=== PATIENT | female | born 1965 | race Caucasian/White ===

== ENCOUNTER 2019-10-05 16:17 | Outpatient (CLI) | payer BC, SELFPAY ==
--- NOTE | 2019-10-05 | XR_ITS ---
WS: [id number] CERVICAL SPINE TECHNIQUE: 3 views of the cervical spine CLINICAL INFORMATION: NECK PAIN COMPARISON: 4 18,019 FINDINGS: Straightening of the normal cervical lordosis. Mild spondylitic changes. Mild disc space narrowing wo rse at C5-C6 and C6-C7. Slight retrolisthesis C5 on C6 and C6 on C7. Normal prevertebral soft tissues . Normal C1-2 articulation. XR/XR cervical spine 3V* [id number] IMPRESSION: 1. Straightening of the normal cervical lordosis with mild spondylitic changes . 2. Slight retrolisthesis C5 on C6 and C6-C7 with mild disc space narrowing.
--- NOTE | 2019-10-05 | XR_ITS ---
WS: [id number] LUMBAR SPINE TECHNIQUE: 3 views of the lumbar spine CLINICAL INFORMATION: CHRONIC BACK PAIN COMPARISON: None. FINDINGS: Five [id number] lumbar vertebral bodies. Mild lumbar curve convex right. Disc space heights are well preserved. No compression fractures. Slight retrolisthesis L1 on L2 and L2-L3. Visualized sacroiliac joints are normal. Normal visualized soft tissues. Partially visualized bowel g as pattern is normal. XR/XR lumbar spine 2-3V* [id number] IMPRESSION: 1. Mild lumbar curve convex right. 2. Mild disc space narrowing L4-L5 and L5-S1. 3. No acute lumbar spine findings.
== END 2019-10-05 16:18 | disposition home or self-care (01) ==
LOC: RADWPI 16:18
PROVIDERS: Family Provider Family Medicine; PCP Family Medicine; Visit Provider Nurse Practitioner Family
DX: M47.892 Other spondylosis, cervical region (principal); M54.2 Cervicalgia; G89.29 Other chronic pain

== ENCOUNTER 2019-11-09 11:32 | Outpatient (CLI) | payer BC, SELFPAY ==
--- NOTE | 2019-11-09 11:34 | MR_ITS ---
WS: [id number] MRI LUMBAR SPINE NONCONTRAST TECHNIQUE: Sagittal T1, T2 and STIR imaging. Axial T1 and T2 imaging. CLINICAL INFORMATION: CHRONIC BACK PAIN COMPARISON: None. FINDINGS: Mild lumbar curve. No acute compression. Degenerative disc space narrowing worse L5-S1. L1-L2: Normal. L2-L3: Normal. L3-L4: No significant disc bulging. Mild facet arthropathy. Spinal canal and foramen are patent. L4-L5: Mild annular bulging with slight effacement of the ventral thecal sac. Narrowing of the subart icular recess bilaterally. Moderate facet arthropathy with small facet effusions. Foramen are patent. L5-S1: Disc osteophyte complex with endplate ridging. Central disc osteophyte protrusion with slight contact of the traversing right greater than left S1 nerve roots. Recommend correlation for right S1 nerve root symptoms. Moderate right and mild left foraminal narrowing. Moderate facet arthropathy wit h small facet effusions. Visualized pelvic bony structures: Normal. Paravertebral soft tissues: Normal. MR/MR lumbar spine wo con* [id number] IMPRESSION: 1. Mild lumbar curve. No acute compression. No high-grade central canal stenos is. 2. Disc osteophyte complex L5-S1 with moderate right and mild left bony forami nal narrowing. 3. Small central disc osteophyte protrusion L5-S1 slightly contacts the right greater than left S1 nerve roots. 4. Moderate facet arthropathy L4-L5 and L5-S1 with small facet effusions likel y degenerative. 5. Mild annular bulging L4-5 with slight effacement of the ventral thecal sac and slight narrowing of the subarticular recess bilaterally.
== END 2019-11-09 11:33 | disposition home or self-care (01) ==
LOC: RADSHAW 11:32
PROVIDERS: Family Provider Family Medicine; PCP Nurse Practitioner Family; Visit Provider Nurse Practitioner Family
DX: G89.29 Other chronic pain (principal); M25.78 Osteophyte, vertebrae; M51.27 Other intervertebral disc displacement, lumbosacral region; M47.816 Spondylosis without myelopathy or radiculopathy, lumbar region
CPT/HCPCS: 72148

== ENCOUNTER 2019-12-13 08:30 | Outpatient (CLI) | payer BC, SELFPAY ==
--- NOTE | 2019-12-13 08:46 | XR_ITS ---
WS: [id number] LATERAL LUMBAR SPINE: 3 view. Lateral radiographs are performed in upright neutral, flexion and extension to the patient's toleranc e. HISTORY: low back pain COMPARISON: 10/05/2019 L4 anterolisthesis by 4.3 mm on neutral imaging. With flexion and extension there is no significant c hange in alignment. Disc spaces are asymmetric due to slight rotation and scoliosis. XR/XR lumbar spine f/e only [id number] IMPRESSION: 1. L4 anterolisthesis by 4.3 mm. Please note this instability was not apparent on the supine radiographs and MRI recently performed. Upright imaging exacerba ravi the anterolisthesis. 2. No lumbar spine instability.
== END 2019-12-13 08:31 | disposition home or self-care (01) ==
LOC: RADWPI 08:36
PROVIDERS: Family Provider Family Medicine; PCP Nurse Practitioner Family; Visit Provider Licensed Practical Nurse
DX: M51.17 Intervertebral disc disorders with radiculopathy, lumbosacral region (principal)
CPT/HCPCS: 72120

== ENCOUNTER → 2019-12-14 08:25 | Outpatient (BNVA) | payer BC, SELFPAY | PROVIDERS: Family Provider Family Medicine; PCP Nurse Practitioner Family; Referring Provider Licensed Practical Nurse; Visit Provider Anesthesiology Pain Medicine | DX: G89.29 Other chronic pain (principal); M51.17 Intervertebral disc disorders with radiculopathy, lumbosacral region; F17.210 Nicotine dependence, cigarettes, uncomplicated; Z79.891 Long term (current) use of opiate analgesic | CPT/HCPCS: 99204 ==

== ENCOUNTER → 2019-12-22 12:31 | Outpatient (BNVA) | payer BC, SELFPAY | PROVIDERS: Family Provider Family Medicine; PCP Nurse Practitioner Family; Visit Provider Anesthesiology Pain Medicine | DX: G89.29 Other chronic pain (principal); M51.17 Intervertebral disc disorders with radiculopathy, lumbosacral region; M54.9 Dorsalgia, unspecified | CPT/HCPCS: 64483; 64484 ==

== ENCOUNTER 2020-01-10 10:14 | Outpatient (CLI) | payer BC, SELFPAY ==
--- NOTE | 2020-01-10 | MR_ITS ---
WS: [id number] MRI CERVICAL SPINE HISTORY: CERVICAL DISK W/MYELOPATHY COMPARISON: None available. Mild straightening of the normal cervical lordosis. Moderate degenerative disc disease at C5-6 and C6-7 with osteophytes and disc bulging. Signal within the cord is normal. Craniocervical junction, C1 and C2 relationship, odontoid process and soft tissues are normal. C2-C3: Normal. C3-C4: Normal. C4-C5: Normal. C5-C6: Osteophytic ridging and annular disc bulging. There is mild central and bilateral foraminal st enosis. Slightly more bone contact on the exiting RIGHT nerve roots. C6-C7: Diffuse osteophytic ridging and annular disc bulging. Flattening of the ventral thecal sac. Co mplete effacement of CSF. Moderate central and RIGHT foraminal stenosis with mild LEFT foraminal sten osis. C7-T1: Normal. Paraspinal soft tissue are normal. MR/MR cervical spin wo con* [id number] IMPRESSION: 1. Advanced spondylitic changes at C5-6 and C6-7. 2. Mild central and bilateral foraminal stenosis at C5-6. 3. Moderate central and RIGHT foraminal stenosis and mild LEFT foraminal steno sis at C6-7.
== END 2020-01-10 10:15 | disposition home or self-care (01) ==
LOC: RADWPI 10:17
PROVIDERS: Family Provider Family Medicine; PCP Nurse Practitioner Family; Visit Provider Specialist
DX: M50.020 Cervical disc disorder with myelopathy, mid-cervical region, unspecified level (principal); M48.02 Spinal stenosis, cervical region
CPT/HCPCS: 72141

== ENCOUNTER 2020-01-10 12:31 | Outpatient (RCR) | payer BC, SELFPAY | END 2020-01-18 23:59 | disposition home or self-care (01) | LOC: SPT 12:31 | PROVIDERS: Family Provider Family Medicine; PCP Nurse Practitioner Family; Referring Provider Licensed Practical Nurse; Visit Provider Licensed Practical Nurse | DX: M54.9 Dorsalgia, unspecified (principal) | CPT/HCPCS: 97110; 97161 ==

== ENCOUNTER → 2020-02-28 14:26 | Outpatient (BNVA) | payer BC, SELFPAY | PROVIDERS: Family Provider Family Medicine; PCP Nurse Practitioner Family; Visit Provider Specialist | DX: R20.0 Anesthesia of skin (principal); R20.2 Paresthesia of skin; M79.661 Pain in right lower leg; M79.662 Pain in left lower leg; F17.210 Nicotine dependence, cigarettes, uncomplicated | CPT/HCPCS: 95909 ==

== ENCOUNTER 2020-03-07 16:03 | Outpatient (CLI) | payer BC, SELFPAY ==
--- NOTE | 2020-03-07 16:13 | XR_ITS ---
WS: [id number] XR cervical spine fl/ex [id number] REASON FOR EXAM: CERVICAL DISC DISORDER WITH MYELOPATHY, MID CERVICAL REGION FINDINGS: C5-C6, C6-7 shows settling the disc spaces. Flexion-extension show normal motion this location. There is spurring posteriorly at C5 and 6. XR/XR cervical spine fl/ex [id number] IMPRESSION: Localized cervical spondylosis the 5 and C6 Degenerated disc changes C5-6, C6-C7.
== END 2020-03-07 16:04 | disposition home or self-care (01) ==
LOC: WPI 16:06
PROVIDERS: Family Provider Family Medicine; PCP Nurse Practitioner Family; Visit Provider Specialist
DX: M50.020 Cervical disc disorder with myelopathy, mid-cervical region, unspecified level (principal); M47.812 Spondylosis without myelopathy or radiculopathy, cervical region; M50.323 Other cervical disc degeneration at C6-C7 level
CPT/HCPCS: 72040

== ENCOUNTER → 2020-03-08 09:55 | Outpatient (BNVA) | payer BC, SELFPAY | PROVIDERS: Family Provider Family Medicine; PCP Nurse Practitioner Family; Visit Provider Anesthesiology Pain Medicine | DX: G89.29 Other chronic pain (principal); M54.2 Cervicalgia; M47.816 Spondylosis without myelopathy or radiculopathy, lumbar region; M51.16 Intervertebral disc disorders with radiculopathy, lumbar region; M51.17 Intervertebral disc disorders with radiculopathy, lumbosacral region; M54.9 Dorsalgia, unspecified; M25.552 Pain in left hip; J44.9 Chronic obstructive pulmonary disease, unspecified; F17.210 Nicotine dependence, cigarettes, uncomplicated | CPT/HCPCS: 99214 ==

== ENCOUNTER → 2020-03-28 14:56 | Outpatient (BNVA) | payer BC, SELFPAY | PROVIDERS: Family Provider Family Medicine; PCP Nurse Practitioner Family; Visit Provider Anesthesiology Pain Medicine | DX: G89.29 Other chronic pain (principal); M51.17 Intervertebral disc disorders with radiculopathy, lumbosacral region; M47.816 Spondylosis without myelopathy or radiculopathy, lumbar region; M54.2 Cervicalgia; M54.9 Dorsalgia, unspecified; J44.9 Chronic obstructive pulmonary disease, unspecified; M25.559 Pain in unspecified hip; F17.210 Nicotine dependence, cigarettes, uncomplicated; Z79.891 Long term (current) use of opiate analgesic | CPT/HCPCS: 99213; 99214 ==

== ENCOUNTER 2020-04-03 14:33 | Outpatient (RCR) | payer BC, SELFPAY | END 2020-04-19 23:59 | disposition home or self-care (01) | LOC: SPT 14:33 | PROVIDERS: PCP Nurse Practitioner Family; Referring Provider Licensed Practical Nurse; Visit Provider Licensed Practical Nurse | DX: M51.16 Intervertebral disc disorders with radiculopathy, lumbar region (principal) | CPT/HCPCS: 97161; L0637 ==

== ENCOUNTER 2020-04-05 07:08 | Outpatient (CLI) | payer BC, SELFPAY ==
--- NOTE | 2020-04-05 07:51 | CT_ITS ---
WS: [id number] LDCT LUNG CANCER SCREENING TECHNIQUE: Noncontrast CT of the chest with coronal and sagittal reformatted images. CLINICAL INFORMATION: NICOTINE DEPENDENCE,CIGARETTES COMPARISON: None. DLP: 54.52 mGy.cm DIvol: 1.[address] scans at [facility] use at least one of these dose optimization techniques: automat ed exposure control; mA and/or kV adjustment per patient size (includes targeted exams where dose is matched to clinical indication); or iterative reconstruction. FINDINGS: Moderate chronic erythematous changes. Groundglass opacity within the right lower lobe measuring 6.5 mm. Recommend further evaluation with chest CT. Subsegmental atelectasis in the lung bases. No mediastinal or hilar lymphadenopathy. CT/CT lung screening [id number] IMPRESSION: LUNG-RADS: 4B-Suspicious FOLLOW UP: Chest CT with or without contrast
--- NOTE | 2020-04-05 13:19 | PFTS_ITS ---
Date of Study:04/05/20 Date of Dictation: MECHANICS: Forced vital capacity (FVC) is normal. Forced expiratory volume in one second (FEV1) is reduced. FEV1/FVC is reduced. FLOW VOLUME LOOP: . LUNG VOLUMES: Total lung capacity (TLC) is normal. Residual volume (RV) is increased. DIFFUSING CAPACITY FOR CARBON MONOXIDE: Normal. INTERPRETATION: The pulmonary function tests are consistent with moderate obstruction. There is no significant postbronchodilator response. Lung volumes are consistent with air trapping. Gas exchange (DLCO) is normal. MTDD
== END 2020-04-05 07:09 | disposition home or self-care (01) ==
PROVIDERS: PCP Nurse Practitioner Family; Visit Provider Nurse Practitioner Family
DX: J44.1 Chronic obstructive pulmonary disease with (acute) exacerbation (principal); F17.210 Nicotine dependence, cigarettes, uncomplicated
CPT/HCPCS: 94060; 94726; 94729; G0297; J7611

== ENCOUNTER → 2020-04-22 14:43 | Outpatient (BNVA) | payer BC, SELFPAY | PROVIDERS: PCP Nurse Practitioner Family; Visit Provider Anesthesiology Pain Medicine | DX: G89.29 Other chronic pain (principal); M47.816 Spondylosis without myelopathy or radiculopathy, lumbar region; M51.17 Intervertebral disc disorders with radiculopathy, lumbosacral region; M54.2 Cervicalgia; M54.9 Dorsalgia, unspecified; M25.559 Pain in unspecified hip; J44.9 Chronic obstructive pulmonary disease, unspecified; F17.210 Nicotine dependence, cigarettes, uncomplicated; Z79.891 Long term (current) use of opiate analgesic | CPT/HCPCS: 99213; 99214 ==

== ENCOUNTER 2020-04-30 14:50 | Outpatient (CLI) | payer BC, SELFPAY ==
--- NOTE | 2020-04-30 | CT_ITS ---
WS: [id number] CT CHEST WITH INTRAVENOUS CONTRAST HISTORY: Abnormal chest CT. TECHNIQUE: Contiguous 5 mm axial imaging performed on the thorax. Coronal and sagittal reformats are submitted. All CT scans at [facility] use at least one of these dose optimization techniq ues: automated exposure control; mA and/or kV adjustment per patient size (includes targeted exams wh ere dose is matched to clinical indication); or iterative reconstruction. CONTRAST: Omnipaque 300; 95 mL IV. DLP: 651.25 mGycm COMPARISON: 04/05/2020 Lungs and central airway: Hyperinflated lungs. There is a slightly lobulated 5 mm nodule in the RIGHT lower lobe as seen on the lung screening exam. Pleura: Normal. No pleural effusion. Heart and pericardium: Normal size heart. No pericardial effusion. Mediastinum and maynor: No mediastinum or hilar adenopathy. Vessels: Mild atherosclerosis aorta. Chest wall and lower neck: Nonvisualization of the LEFT thyroid lobe. May have been surgically remove d or atrophied. Upper abdomen: Negative. Osseous structures: No destructive process. CT/CT chest w con* [id number] IMPRESSION: 1. Very lobulated RIGHT lower lobe 5 mm pulmonary nodule. Follow-up chest CT i n 12 months. 2. Chronic emphysema.
[2020-04-30] MEDS: iohexol 300 mg/mL 100 mL Btl IV (15:27)
== END 2020-04-30 14:51 | disposition home or self-care (01) ==
LOC: RADWPI 14:53
PROVIDERS: PCP Nurse Practitioner Family; Visit Provider Nurse Practitioner Family
DX: R93.89 Abnormal findings on diagnostic imaging of other specified body structures (principal); J43.9 Emphysema, unspecified; R91.1 Solitary pulmonary nodule
CPT/HCPCS: 71260; Q9967